=== PATIENT | male | born 1980 | race African-American/Black ===

== ENCOUNTER 2017-01-04 12:54 | Emergency (ER) | payer OTHER ==
[2017-01-04 13:02] VITALS: BP 132/84
--- NOTE | 2017-01-04 13:21 | ED Physician Documentation ---
History of Present Illness - Stated complaint Stated Complaint: NOSE INJURY - Chief complaint Chief Complaint: Laceration - History obtained from History obtained from: Patient - History of Present Illness Timing: Today Pain level max: 0 Pain level now: 0 Improved by: nothing Worsened by: nothing - Additonal information Additional information: Patient is a 36-year-old male who is active [employer], states the ladder fell and struck him on the bridge of the nose causing a small laceration. No loss of consciousness. No vomiting. No headache. Review of Systems Eyes: denies: Decreased vision, Photophobia Nose: denies: Epistaxis Skin: denies: Rash Musculoskeletal: denies: Neck pain, Back pain Neurologic: denies: Focal weakness, Numbness, Confused, Altered mental status, LOC PD PAST MEDICAL HISTORY - Past Medical History Past Medical History: No - Past Surgical History Past Surgical History: No - Present Medications Home Medications: Ambulatory Orders Medication Instructions Recorded Confirmed No Known Home Medications [No 01/04/17 01/04/17 Known Home Medications] - Allergies Allergies/Adverse Reactions: Allergies Allergy/AdvReac Type Severity Reaction Status Date / Time No Known Drug Allergies Allergy Verified 01/04/17 13:00 - Immunizations Immunizations are current?: Yes Immunizations: TDAP current <10years PD ED PE NORMAL - Vitals Vital signs reviewed: Yes - General General: Alert and oriented X 3, No acute distress - HEENT HEENT: PERRL, EOMI, Other (0.5cm laceration to the bridge of nose. no deformity. no septal hematoma. No tenderness over the remainder of the skull or facial bones. ) - Neck Neck: Supple, no meningeal sign, No bony TTP - Derm Derm: Warm and dry - Neuro Neuro: Alert and oriented X 3 - Psych Psych: Normal mood, Normal affect Results - Vitals Vitals: Vital Signs - 24 hr 01/04/17 12:59 Temperature 36.8 C Heart Rate 77 Respiratory 16 Rate Blood Pressure 132/84 H O2 Saturation 99 Oxygen O2 Source Room air Procedures - Laceration (location) nasal Length in cm: 0.5 Wound type: Linear Neurovascular status: Sensory intact, Motor intact, Vascular intact Skin layer closure: Dermabond Other: Patient tolerated well, No complications, Neurovascular intact, Tetanus UTD Complexity: Simple PD MEDICAL DECISION MAKING - ED course Complexity details: considered differential, d/w patient ED course: Patient is a 36-year-old male who presents to the emergency department with a laceration to the bridge of the nose. This was repaired. No evidence of nasal fracture that is displaced to require intervention. No evidence of septal hematoma. Extraocular movements intact. No other evidence of facial bone fractures. No evidence of concussion. Patient counseled regarding signs and symptoms for which I believe and urgent re-evaluation would be necessary. Patient with good understanding of and agreement to plan and is comfortable going home at this time This document was made in part using voice recognition software. While efforts are made to proofread this document, sound alike and grammatical errors may occur. Departure - Departure Disposition: 01 Home, Self Care Clinical Impression: Laceration of nose Qualifiers: Encounter type: initial encounter Qualified Code(s): S01.21XA - Laceration without foreign body of nose, initial encounter Condition: Good Instructions: ED Laceration Facial Skin Glue Follow-Up: your,doctor within 1 week [Other] Comments: Return if you worsen. Keep the wound clean. Discharge Date/Time: 01/04/17 13:27
== END 2017-01-04 13:27 | disposition home or self-care (01) ==
LOC: ED 12:54
DX: S01.21XA Laceration without foreign body of nose, initial encounter (principal); W22.8XXA Striking against or struck by other objects, initial encounter
CPT/HCPCS: 12011; 99283

== ENCOUNTER 2017-07-05 12:18 | Emergency (ER) | payer OTHER ==
[2017-07-05] MEDS ORDERED: BUFFERED LIDOCAINE 10 ML SYRINGE SUBQ STA (12:48)
--- NOTE | 2017-07-05 13:13 | ED Physician Documentation ---
History of Present Illness - Stated complaint Stated Complaint: BUMP UNDER ARMPIT - Chief complaint Chief Complaint: General - History obtained from History obtained from: Patient - History of Present Illness Timing: Other (2-week history of painful cysts in the right axilla without fevers. He has no history of these.) Review of Systems Constitutional: denies: Fever, Chills Cardiac: reports: Reviewed and negative Respiratory: reports: Reviewed and negative PD PAST MEDICAL HISTORY - Past Medical History Past Medical History: No Cardiovascular: None Respiratory: None Neuro: None Endocrine/Autoimmune: None GI: None : None HEENT: None Psych: None Musculoskeletal: None Derm: None - Past Surgical History Past Surgical History: No - Present Medications Home Medications: Ambulatory Orders Medication Instructions Recorded Confirmed Doxycycline Hyclate 100 mg PO BID #14 tablet 07/05/17 Ibuprofen [Motrin] 800 mg PO Q8H PRN #30 tablet 07/05/17 - Allergies Allergies/Adverse Reactions: Allergies Allergy/AdvReac Type Severity Reaction Status Date / Time No Known Drug Allergies Allergy Verified 07/05/17 12:42 - Social History Does the pt smoke?: No Smoking Status: Never smoker Does the pt drink ETOH?: No Does the pt have substance abuse?: No - Immunizations Immunizations are current?: Yes Immunizations: TDAP current <10years - POLST Patient has POLST: No PD ED PE NORMAL - Vitals Vital signs reviewed: Yes - General General: Alert and oriented X 3, No acute distress - Derm Derm: Other (In the right axilla there are 2 cysts, one quarter sized and one may be slightly larger with fluctuance, no cellulitis.) - Neuro Neuro: Alert and oriented X 3, Normal speech Results - Vitals Vitals: Vital Signs - 24 hr 07/05/17 12:36 Temperature 36.9 C Heart Rate 69 Respiratory 16 Rate Blood Pressure 136/86 H O2 Saturation 96 Oxygen O2 Source Room air Procedures - Abscess I&D (location) R axilla Preparation: Betadine, Lidocaine 1% Incision: Incised with scalpel (x2), Purulent drainage, Loculations broken, Culture obtained. No: Packed (too small) Other: Pt tolerated well, Dressing applied, Antibiotic prescribed Departure - Departure Disposition: 01 Home, Self Care Clinical Impression: Abscess of axilla, right Condition: Good Record reviewed to determine appropriate education?: Yes Instructions: ED Abscess IandD Prescriptions: Doxycycline Hyclate 100 mg PO BID #14 tablet Ibuprofen [Motrin] 800 mg PO Q8H PRN #30 tablet PRN Reason: PAIN &/OR FEVER Comments: We are performing a wound culture, the results should be done in 48-72 hours. If antibiotic change is necessary we will call you. Return if worse in the meantime, especially if you develop increased pain, fevers, cannot keep down the medication. Otherwise follow-up with your physician in approximately 2-3 days. Your blood pressure was elevated today on check into the emergency department. This does not mean that you have hypertension, it is a common phenomenon to come to the emergency department and have elevated blood pressure. I recommend that you see your primary care physician within the week to have it rechecked when you are feeling better.
[2017-07-05 13:48] VITALS: BP 149/95
== END 2017-07-05 13:48 | disposition home or self-care (01) ==
LOC: ED 12:18
DX: L02.411 Cutaneous abscess of right axilla (principal); R03.0 Elevated blood-pressure reading, without diagnosis of hypertension
CPT/HCPCS: 10060; 87070; 87077; 87205; 99283

== ENCOUNTER 2021-01-11 08:14 | Outpatient (CLI) | payer OTHER ==
--- NOTE | 2021-01-12 08:31 | MRI Report ---
PROCEDURE: Lumbar Spine W/O INDICATIONS: LOW BACK PAIN TECHNIQUE: Noncontrast sagittal T1 spin echo and T2 fast echo, sagittal STIR, axial T1 and T2 fast spin echo thr ough the lumbar spine. In cases with scoliosis, additional coronal T2 fast spin echo may be performe d. COMPARISON: None. FINDINGS: Image quality: Excellent. Alignment and Curvature: No plain films are available for comparison. Thus, for numbering purposes, 5 lumbar type vertebral bodies will be presumed for the current report. This should be confirmed with plain film correlation prior to any lumbar spinal intervention. There is loss of normal lumbar lordo sis. There is minimal grade 1 retrolisthesis of L4 on L5. Bone Marrow: Marrow is of normal overall signal. No acute vertebral body compression fractures. Mi nimal reactive signal within the end plates adjacent to the L4-L5 intervertebral disc. Spinal Cord: Conus medullaris terminates at the upper T12 level. Visualized cord demonstrates main l signal and size. Paraspinous Soft Tissues: No paravertebral masses. T12-L1: Normal in appearance. L1-L2: Normal in appearance. L2-L3: Normal in appearance. L3-L4: Normal in appearance. L4-L5: Mild disc height loss and desiccation. Mild diffuse disc bulge. Mild facet and ligament flav um hypertrophy. Mild canal stenosis. Mild bilateral foraminal stenosis. L5-S1: Mild bilateral facet hypertrophy. No significant canal stenosis. Mild bilateral foraminal st enosis. IMPRESSION: 1. Lower lumbar degenerative disc and facet disease, causing mild canal and foraminal stenoses as henry cribed above. No neural impingement. 2. Five lumbar type vertebral bodies were presumed for the purposes of the current report. Correlati on with plainfilms for numbering purposes is recommended prior to any lumbar spinal intervention. Reviewed by: Marguerite Machuca MD on 01/12/2021 8:30 AM PST Approved by: Marguerite Machuca MD on 01/12/2021 8:30 AM PST Station ID: [id number]
== END 2021-01-11 08:15 | disposition home or self-care (01) ==
LOC: DI 08:14
PROVIDERS: ATTEND Internal Medicine
DX: M51.36 Other intervertebral disc degeneration, lumbar region (principal); M48.061 Spinal stenosis, lumbar region without neurogenic claudication; M47.816 Spondylosis without myelopathy or radiculopathy, lumbar region; M47.817 Spondylosis without myelopathy or radiculopathy, lumbosacral region; M48.07 Spinal stenosis, lumbosacral region